=== PATIENT | male | born 1980 | race African-American/Black ===

== ENCOUNTER 2022-04-24 14:02 | Emergency (ER) | payer MEDICAID ==
[~2022-04-24] VITALS: Ht 195.6 cm; Wt 82.0 kg
[2022-04-24 14:37] VITALS: BP 137/84
[2022-04-24] MEDS ORDERED: IBUPROFEN 400MG TABLET PO ONE (16:30)
[2022-04-24] MEDS ORDERED: TETANUS AND DIPHTHERIA TOX/PF 0.5ML SYR (ADULT) IM ONE ×2 (16:30→19:00)
[2022-04-24] MEDS ORDERED: CEPH500C2 MT ×2 (18:50)
[2022-04-24] MEDS ORDERED: SULF1TAB48 MT (18:50)
[2022-04-24] MEDS ORDERED: IBUPROFEN 400MG TABLET PO NR (19:00)
== END 2022-04-24 19:08 | disposition home or self-care (01) ==
LOC: ER 14:02
DX: L08.89 Other specified local infections of the skin and subcutaneous tissue (principal); J45.909 Unspecified asthma, uncomplicated; Z91.041 Radiographic dye allergy status
CPT/HCPCS: 90714; 99283

== ENCOUNTER 2023-02-24 13:03 | Emergency (ER) | payer OTHER ==
[~2023-02-24] VITALS: Ht 185.4 cm; Wt 100.0 kg
[~2023-02-24 13:03] MED LIST: SULF1TAB48 MT
[2023-02-24 13:19] VITALS: O2SAT 99
[2023-02-24] MEDS ORDERED: LIDOCAINE HCL/PF 1% 10 MG/ML 5ML VIAL INFIL ONE (15:00)
[2023-02-24] MEDS ORDERED: BACITRACIN ZINC OINT UDPKT TOP ONE (15:00)
[2023-02-24] MEDS ORDERED: AMOX1TAB16 MT (15:58)
[2023-02-24 17:35] VITALS: BP 124/87; PULSE 76; RESP 18; TEMP 97.7
== END 2023-02-24 17:36 | disposition home or self-care (01) ==
LOC: ER 13:31
DX: L03.012 Cellulitis of left finger (principal)
CPT/HCPCS: 10060; 99283; J3490; Z7610

== ENCOUNTER 2023-04-23 10:27 | Emergency (ER) | payer OTHER ==
[~2023-04-23] VITALS: Ht 195.6 cm; Wt 93.0 kg
[~2023-04-23 10:27] MED LIST changes: +AMOX1TAB16 MT
[2023-04-23 10:35] VITALS: TEMP 98.2; O2SAT 100
[2023-04-23] MEDS ORDERED: MORPHINE SULFATE 10 MG/ML CPJ IM ONE (13:45)
[2023-04-23 16:59] LABS: ALANINE AMINOTRANSFERASE 23 IU/L (10-49); ALBUMIN 3.8 g/dL (3.2-4.8); ASPARTATE AMINOTRANSFERASE 63 IU/L (<34); BASOPHILS % 0.2 % (0.0-2.0); BILIRUBIN TOTAL 0.6 mg/dL (0.1-1.0); CALCIUM 8.8 mg/dL (8.7-10.4); CARBON DIOXIDE 20 mEq/L (21-32); CHLORIDE 104 mEq/L (98-107); GLUCOSE 74 mg/dL (70-105); HEMATOCRIT. 42.4 % (42.0-52.0); HEMOGLOBIN. 13.7 g/dL (14.0-18.0); LYMPHOCYTES % 13.9 % (20.0-50.0); MEAN CORPUSCULAR HEMOGLOBIN 28.8 pg (28.0-32.0); MEAN CORPUSCULAR HGB CONC 32.2 g/dL (31.0-37.0); MEAN CORPUSCULAR VOLUME 89.3 fL (80.0-94.0); MEAN PLATELET VOLUME 8.2 fl (7.4-10.4); MONOCYTES % 10.6 % (2.0-8.0); NEUTROPHILS % 75.3 % (40.0-76.0); PLATELET 258 x1000/uL (130-400); POTASSIUM 3.7 mEq/L (3.5-5.1); PROTEIN TOTAL 7.3 g/dL (6.0-8.3); RED BLOOD CELL COUNT 4.75 mill/uL (4.7-6.1); RED CELL DISTRIBUTION WIDTH 15.1 % (11.6-14.6); SODIUM 136 mEq/L (136-145); UREA NITROGEN BLOOD 14 mg/dL (9-23)
[2023-04-23 17:10] LABS: INR 1.3; PARTIAL THROMBOPLASTIN TIME 32.7 sec (23.4-31.0); PROTHROMBIN TIME 13.6 sec (9.6-11.0)
[2023-04-23 22:30] VITALS: BP 113/58; PULSE 81; RESP 17
== END 2023-04-23 22:53 | disposition short-term general hospital (02) ==
LOC: ER 10:27 → CANBEDREQ 17:15 → ER 22:53
DX: S92.001A Unspecified fracture of right calcaneus, initial encounter for closed fracture (principal); J45.909 Unspecified asthma, uncomplicated; Z91.041 Radiographic dye allergy status; W13.9XXA Fall from, out of or through building, not otherwise specified, initial encounter; Y93.89 Activity, other specified; Y92.89 Other specified places as the place of occurrence of the external cause; Y99.8 Other external cause status
CPT/HCPCS: 99285; 80053; 85025; 85610; 85730; 36415; 73560; 73590; 73610; 73620; 96372; J2270